=== PATIENT | female | born 1965 | race Caucasian/White ===

== ENCOUNTER → 2016-05-03 | Outpatient (CLI) | payer MEDICAID ==
[~2016-05-03] MED LIST: DOCU100C PO; LIDOCAINE 1% MDV 20ML VIAL As Ordered ONE; MORP15TA2 PO; OYST500T50 PO; PERC10TA17 PO; RANI1TAB6 PO
--- NOTE | 2016-05-03 16:57 | REP ---
ULTRASOUND LEFT AXILLARY REGION: Ultrasound left axillary region is performed at the site of a reported palpable abnormality. Patient has had prior bilateral mastectomy. In the left axillary region is a rounded area of fluid with internal echo's measuring 2.1 x 1.7 x 1.9 cm. We will proceed with ultrasound guided aspiration. Signed by Iftikhar Ibanez MD 05/04/2016 05:10 P
--- NOTE | 2016-05-03 20:52 | REP ---
ULTRASOUND GUIDED LEFT AXILLARY NODULE BIOPSY: The procedure was performed under the direct supervision of Dr. Ibanez. The patient is status post bilateral mastectomy. The patient has a history of a palpable lump in the left axillary region. Preliminary sonography performed earlier today demonstrates a round hypoechoic fluid collection with some internal echoes measuring 2.1 x 1.7 x 1.9 cm. The risks and benefits of the procedure of the procedure were explained to the patient and informed consent was obtained. The left axillary nodule was localized using ultrasound guidance. The skin was prepped and draped in a sterile fashion. 1% lidocaine was used as a local anesthetic. Using ultrasound guidance, an 18-gauge needle was inserted and advanced into the nodule. 3 mL of yellow colored fluid was withdrawn and sent to the lab. The patient tolerated the procedure well and there were no immediate complications. Reviewed by DIANA Kwan 05/04/2016 08:34 AEdited and Signed by Iftikhar Ibanez MD 05/04/2016 05:05 P
== END | disposition home or self-care (01) ==
LOC: M RADPRO 10:17
PROVIDERS: ATTEND Internal Medicine Medical Oncology
DX: R59.0 Localized enlarged lymph nodes (principal); Z88.8 Allergy status to other drugs, medicaments and biological substances; Z79.891 Long term (current) use of opiate analgesic; Z79.818 Long term (current) use of other agents affecting estrogen receptors and estrogen levels; Z79.899 Other long term (current) drug therapy; Z85.3 Personal history of malignant neoplasm of breast

== ENCOUNTER 2016-05-09 11:39 | Outpatient (RCR) | payer MEDICAID | END 2016-05-31 | LOC: M PT 11:39 | PROVIDERS: ATTEND Internal Medicine | DX: Z51.89 Encounter for other specified aftercare (principal); C50.912 Malignant neoplasm of unspecified site of left female breast; C50.911 Malignant neoplasm of unspecified site of right female breast ==

== ENCOUNTER → 2016-05-09 | Outpatient (REF) | payer MEDICAID ==
[~2016-05-09] MED LIST changes: -LIDOCAINE 1% MDV 20ML VIAL As Ordered ONE
== END ==
LOC: M LAB REF 12:10
PROVIDERS: ATTEND Internal Medicine Medical Oncology
DX: C50.919 Malignant neoplasm of unspecified site of unspecified female breast (principal)

== ENCOUNTER → 2016-06-07 | Outpatient (CLI) | payer MEDICAID ==
--- NOTE | 2016-06-07 21:33 | ECHO ---
DATE OF PROCEDURE: 06/07/2016 REFERRING PHYSICIAN: Kim Weir MD INDICATION: Chemotherapy drugs that may affect the heart. HEIGHT: 175 cm WEIGHT: 60 kg MEASUREMENTS: Left atrium: 3.0 cm Aortic root: 3.2 cm Left ventricle diastole: 3.9 cm Ventricular septum: 0.84 cm Posterior wall: 0.84 cm LVOT: 2.1 cm Inferior vena cava: 1.5 cm DOPPLER MEASUREMENTS: Aortic valve velocity: 114 cm/s LVOT velocity: 72.9 cm/s Very mild mitral regurgitation. Mitral E velocity: 82.9 cm/s Mitral A velocity: 38.0 cm/s Mitral deceleration time: 204 ms Very mild tricuspid regurgitation. Estimated right ventricle systolic pressure 18 mmHg assuming a right atrial pressure of 5 mmHg. MITRAL ANNULAR TISSUE DOPPLER: E prime septal: 10.3 cm/s E prime lateral: 13.6 cm/s DESCRIPTION: Rhythm was sinus. No pericardial effusion. Image quality was fair. This is a 2D, M-mode, color flow Doppler and pulse wave Doppler examination that included mitral annular tissue Doppler. CONCLUSIONS: 1. Normal echocardiogram Doppler. 2. Normal left ventricle internal dimensions, wall thickness, wall motion, wall thickening, systolic and diastolic function. Left ventricular ejection fraction (LVEF) 60% by visual estimate.
== END ==
LOC: M CARPUL 10:31
PROVIDERS: ATTEND Internal Medicine Medical Oncology
DX: C50.919 Malignant neoplasm of unspecified site of unspecified female breast (principal)

== ENCOUNTER → 2016-06-17 | Outpatient (CLI) | payer MEDICAID ==
[~2016-06-17] VITALS: Ht 175.3 cm; Wt 59.0 kg
[~2016-06-17] MED LIST changes: +LIDOCAINE 2% INJ 100 MG/5 ML SDV (FOR ANES.) As Ordered ONE; +NS 1,000 ML IV SCH; +PROPOFOL 200 MG/20 ML VIAL As Ordered ONE
--- NOTE | 2016-06-17 14:20 | ROOR ---
Patient Name: Hammad Ruiz Procedure Date: 06/17/2016 1:55 PM Date of : 1965 Age: 50 Room: [facility] Gender: Female Note Status: Finalized Procedure: Colonoscopy Indications: Hematochezia, Change in bowel habits, Constipation Providers: Jackson ARAUZ MD Referring MD: FRANCIS ROBIN MD Requesting Provider: Medicines: Monitored Anesthesia Care Complications: No immediate complications. Procedure: Pre-Anesthesia Assessment: - The heart rate, respiratory rate, oxygen saturations, blood pressure, adequacy of pulmonary ventilation, and response to care were monitored throughout the procedure. The Colonoscope was introduced through the anus and advanced to the cecum, identified by appendiceal orifice and ileocecal valve. The colonoscopy was performed without difficulty. The patient tolerated the procedure well. The quality of the bowel preparation was good. Findings: The perianal and digital rectal examinations were normal. (Exam: Complete, Prep: Good or Excellent.) Internal hemorrhoids were found during retroflexion. The hemorrhoids were medium-sized. A 8 mm polyp was found in the proximal ascending colon. The polyp was carpet-like. The polyp was removed with a cold snare. Resection and retrieval were complete. A few medium-mouthed diverticula were found in the sigmoid colon. The exam was otherwise without abnormality on direct and retroflexion views. Impression: - Internal hemorrhoids. - One 8 mm polyp in the proximal ascending colon, removed with a cold snare. Resected and retrieved. - Mild diverticulosis in the sigmoid colon. - The examination was otherwise normal on direct and retroflexion views. Recommendation: - Telephone endoscopist for pathology results in 2 weeks. - If the pathology report reveals adenomatous tissue, then repeat the colonoscopy for surveillance in 3 years. - If the pathology report indicates hyperplastic polyp, then repeat colonoscopy for screening purposes in 10 years. Jackson Arauz MD Jackson ARAUZ MD 06/17/2016 2:20:00 PM This report has been signed electronically. Number of Addenda: 0 Note Initiated On: 06/17/2016 1:55 PM Estimated Blood Loss: Estimated blood loss: none.
[2016-06-17 14:45] VITALS: BP 108/67
== END | disposition home or self-care (01) ==
LOC: M OPP 12:45
PROVIDERS: ATTEND Internal Medicine Gastroenterology
DX: K64.8 Other hemorrhoids (principal); D12.2 Benign neoplasm of ascending colon; K57.30 Diverticulosis of large intestine without perforation or abscess without bleeding; R12 Heartburn; F17.200 Nicotine dependence, unspecified, uncomplicated; Z79.899 Other long term (current) drug therapy

== ENCOUNTER 2016-06-21 11:54 | Outpatient (RCR) | payer MEDICAID ==
[~2016-06-21 11:54] MED LIST changes: -LIDOCAINE 2% INJ 100 MG/5 ML SDV (FOR ANES.) As Ordered ONE; -NS 1,000 ML IV SCH; -PROPOFOL 200 MG/20 ML VIAL As Ordered ONE
== END 2016-06-28 ==
LOC: M PT 11:54
PROVIDERS: ATTEND Internal Medicine
DX: Z51.89 Encounter for other specified aftercare (principal); C50.912 Malignant neoplasm of unspecified site of left female breast; C50.911 Malignant neoplasm of unspecified site of right female breast

== ENCOUNTER 2016-06-23 15:31 | Outpatient (RCR) | payer MEDICAID ==
--- NOTE | 2016-06-22 10:25 | RADONC ---
RADIATION ONCOLOGY PROGRESS NOTE DATE: 06/20/2016 CHART NUMBER: [id number] Once again, I had a very lengthy discussion with Mrs. Ruiz on the telephone. It is now two months' today since I have seen her in consultation. After a very lengthy discussion, the patient reports that she has now been off smoking cigarettes for 6 days and that her plastic surgeon is scheduling her for surgery sometime around August 05. She does not wish to have radiation until she has had surgery and the surgical wounds have healed. This would put it at the end of July or the beginning of August, which is another 2+ months away. I had a very lengthy discussion in no uncertain terms with this patient. I told her that I am quite concerned that it is now 2 months and nothing has been done. I let her know that she has already risked and compromised the overall local control rate of her disease. As time goes on, the efficacy of radiation becomes more and more questionable. The patient is very focused on reconstructive surgery and still did not want radiation. I made clear to her that cure of her malignancy should be her top priority. After a very lengthy discussion with this patient, trying to get her to consider initiating radiation, or at least to move up her plastic surgery sooner, she said she needs to talk to her and she will get back to us. So once again, in conclusion, we basically ended the call with the fact that she will think about it and get back to us if and when she wants radiation. I did discuss with her the multiple phone call she has had with my nurse Manuel Melissa over the past month or so, which also let her know risks she is taking. I was physically present in the room during several of those phone calls and can confirm that nurse Melissa explained to her the risks of delaying radiation much further. Once again in summary, we will honor the patient's wishes and she will contact us if she wants radiation and when. I let it be clear that I do not know if there is absolutely any benefit to radiation after 6 months post treatment. She will be talking to her and get back to us if she wishes.
--- NOTE | 2016-06-24 09:45 | RADONC ---
RADIATION ONCOLOGY SIMULATION NOTE DATE: 06/23/2016 CHART NUMBER: [id number] Ms. Ruiz was taken to the CT scan for CT simulation of her left breast and supraclavicular rosenberg. CT was accomplished without difficulty or discomfort. Radiation treatment planning is underway and radiation treatments will begin subsequently. An immobilization device was created without difficulty or discomfort and will be used throughout the course of treatment. I was physically present throughout the course of CT simulation.
== END 2016-06-28 ==
LOC: M ONCR 15:31
PROVIDERS: ATTEND Radiology Radiation Oncology
DX: C50.919 Malignant neoplasm of unspecified site of unspecified female breast (principal)

== ENCOUNTER → 2016-06-23 | Outpatient (CLI) | payer MEDICAID | LOC: M RAD 13:37 | PROVIDERS: ATTEND Radiology Radiation Oncology | DX: C50.312 Malignant neoplasm of lower-inner quadrant of left female breast (principal); C50.811 Malignant neoplasm of overlapping sites of right female breast ==

== ENCOUNTER 2016-06-29 11:18 | Outpatient (RCR) | payer MEDICAID ==
--- NOTE | 2016-07-05 09:54 | RADONC ---
RADIATION ONCOLOGY PROGRESS NOTE DATE: 07/04/2016 CHART NUMBER: [id number]. Ms. Ruiz presented today for her first fraction of radiation to her left breast, axilla and supraclavicular areas. We did our best at this point to attempt and set this woman up. She said she was in too much pain and unable to keep her arm in the position she was in during CT simulation and treatment planning. She is also unable to lie in the same position with her shoulder and back. After an extended period time attempting to recreate our treatment planning position, we have given up at this point. The patient reports that she thinks this is due to physical therapy which has caused her increased pain and the fact that she has not taken her pain medication. I have asked her to allow for some time for relaxing of her arm and to take a pain pill prior to coming in next time. We will reattempt this on . If the patient cannot do it, we may try one more attempt, and otherwise, we will see if we can undergo a new CT for CT treatment planning and redo the entire plan. We are utilizing a monoisocentric breast technique. We cannot allow movement or there will be an overlap between the four rosenberg possibly leading to radio osteonecrosis, skin breakdown and other problems. This is especially a concern in a patient that is planning on undergoing cosmetic surgery following radiation. It would be quite risky to obtain a possible hot spot in a future surgical field. Once again, in summary, the patient could not reproduce the treatment position and therefore we will reattempt this later in the week and perhaps again next, prior to re-CT simulating her.
--- NOTE | 2016-07-14 09:14 | RADONC ---
RADIATION ONCOLOGY SIMULATION NOTE DATE: 07/14/2016 Ms. Ruiz unfortunately, was unable to maintain her position for the four-field breast treatment. Multiple attempts had been made on the linear accelerator and we could not reproduce the field. She says she is too uncomfortable and has to keep her arm basically straight up in the air. She cannot get them over her head. We therefore have taken her back to CT scan for re-simulation and positioning. We now have the patient somewhat at an angle with her arm straight up. She seems comfortable in this position. Clearly we will be unable to treat the supraclavicular area or the posterior axillary boost field in this position. We can however treat the tangential rosenberg and will try and include the lower axillary region where her sentinel lymph node was positive. She did have further axillary dissection and none of the other lymph nodes were positive. Once again, radiation treatment planning is underway and we will attempt to include the chest wall as well as the first echelon of lymph nodes in the lower axillary area with a sentinel lymph node was positive. An immobilization device as noted above was created and appears to be comfortable at this time. It will be utilized throughout the course of treatment. I was physically present throughout the course of CT simulation. I am unsure whether or not she will be able to maintain this position, but we will attempt to treat her once again. LUIS
--- NOTE | 2016-07-17 07:21 | RADONC ---
RADIATION ONCOLOGY SIMULATION NOTE DATE: 07/15/2016 CHART NUMBER: [id number] Ms. Ruiz was brought back to the CT scan for re-CT simulation once again of her chest wall field. CT this time was accomplished with less discomfort. Following her last one just the other day, the patient moved and said she was not able to hold her position. Therefore, we are re-attempting to do it again, now in a more comfortable position. I made quite clear to the patient at this point she is now almost 5 months post surgery. It is time now either to treat her or to give up on this treatment. I made clear that the treatments last only 10 minutes and if at this point she is still unable to lie in any type of position that can be treated, then that is all that can be done. An immobilization device was created once again, with no discomfort. It will be used throughout the course of treatment. I was physically present once again at this CT simulation. We will attempt to treat her in this new position if she is cooperative. If not, we will refer her back to her medical oncologist.
== END 2016-07-29 ==
LOC: M ONCR 11:18
PROVIDERS: ATTEND Radiology Radiation Oncology
DX: C50.312 Malignant neoplasm of lower-inner quadrant of left female breast (principal); C50.811 Malignant neoplasm of overlapping sites of right female breast

== ENCOUNTER → 2016-07-14 | Outpatient (CLI) | payer MEDICAID | LOC: M RAD 08:16 | PROVIDERS: ATTEND Radiology Radiation Oncology | DX: C50.912 Malignant neoplasm of unspecified site of left female breast (principal) ==

== ENCOUNTER → 2016-07-15 | Outpatient (CLI) | payer MEDICAID | LOC: M RAD 13:58 | PROVIDERS: ATTEND Radiology Radiation Oncology | DX: C50.312 Malignant neoplasm of lower-inner quadrant of left female breast (principal); C50.811 Malignant neoplasm of overlapping sites of right female breast ==

== ENCOUNTER → 2016-07-18 | Outpatient (CLI) | payer MEDICAID ==
--- NOTE | 2016-07-19 08:46 | REP ---
HISTORY: Breast carcinoma. Contrast ProHance 13 mL. A disc bulge is present at the C4-5 level. There is minimal effacement of the thecal sac without spinal cord compression. Facet hypertrophy is present on the left. This produces minimal narrowing of the left C4 neural foramen. The right C4 neural foramen is patent. A disc bulge is present at the C5-6 level. There is minimal effacement of the thecal sac without spinal cord compression. Facet hypertrophy is present on the left. This produces minimal narrowing of the left C5 neural foramen. The right C5 neural foramen is patent. A disc bulge is present at the C6-7 level. There is minimal effacement of the thecal sac without spinal cord compression. The C6 neural foramina are patent. There is no other disc bulge or herniation. The remaining neural foramina are patent. The spinal cord is normal in signal intensity. There is no abnormal enhancement. Normal signal intensity is present in the cervical vertebral bodies. IMPRESSION: There is cervical spondylosis at the C4-5 through C6-7 levels without spinal cord compression. Signed by Cedrick Gore MD 07/19/2016 09:39 A
--- NOTE | 2016-07-19 09:25 | REP ---
MRI NECK WITHOUT AND WITH CONTRAST: HISTORY: Breast carcinoma. Contrast: ProHance 13 mL The examination is very limited as the right side of the naso- and oropharynx and neck are obscured by metal artifact. The visualized naso-, shoshana- and hypopharynx, larynx and subglottic trachea are normal in appearance. The left parotid and submandibular glands and thyroid gland are normal in signal intensity. There is no adenopathy. There is no left supraclavicular mass. Disc bulges are present at the C4-5 through C6-7 levels. There is minimal effacement of the thecal sac without spinal cord compression. The lung apices are clear. IMPRESSION: Very limited examination demonstrating no definite abnormality. Signed by Cedrick Gore MD 07/19/2016 09:36 A
--- NOTE | 2016-07-19 09:33 | REP ---
MRI LEFT SHOULDER WITH AND WITHOUT CONTRAST: TECHNIQUE: Axial T2 fat sat, gradient echo, sagittal oblique T2 fat sat, coronal oblique T1, T2 fat sat. Pre and post IV contrast T1 fat sat imaging in all three planes, with the intravenous administration of 13 mL of gadolinium. There are mild hypertrophic degenerative changes of the acromioclavicular joint with edema in the distal clavicle. The acromion is not hooked in shape. The supraspinatus tendon demonstrates ill-defined increased signal compatible with tendinopathy/tendinitis. No definite rotator cuff tear is seen. The biceps tendon si within the bicipital groove and no tenosynovitis. There is no Hill-Sachs deformity. Deltoid muscle demonstrates no abnormal signal. The biceps labral complex appears intact. There does appear to be fraying of the biceps labral complex and superior labrum. Nonenhancing benign appearing cyst is seen in the proximal humerus measuring 2.8 x 1.8 x 1.9 cm. No other abnormal marrow signal is seen. There is no abnormal bone marrow or soft tissue enhancement. There is no soft tissue mass. There is a tiny amount of fluid in the subacromial subdeltoid bursae which may indicate an element of bursitis. IMPRESSION: Mild hypertrophic degenerative changes of the acromioclavicular joint with subchondral marrow edema in the distal clavicle. Supraspinatus tendinopathy/tendinitis without rotator cuff tear. There is diffuse fraying of the biceps labral complex and superior labrum. There is a benign cyst in the proximal humerus. Mild fluid in the subacromial subdeltoid bursae may indicate an element of bursitis. Signed by Iftikhar Ibanez MD 07/19/2016 03:29 P
== END ==
LOC: M RAD 08:18
PROVIDERS: ATTEND Internal Medicine Medical Oncology
DX: M25.512 Pain in left shoulder (principal); M54.2 Cervicalgia; C50.919 Malignant neoplasm of unspecified site of unspecified female breast; C79.31 Secondary malignant neoplasm of brain

== ENCOUNTER 2016-07-28 11:42 | Outpatient (RCR) | payer MEDICAID | END 2016-07-29 | LOC: M PT 11:42 | PROVIDERS: ATTEND Internal Medicine | DX: Z51.89 Encounter for other specified aftercare (principal); C50.912 Malignant neoplasm of unspecified site of left female breast; C50.911 Malignant neoplasm of unspecified site of right female breast ==

== ENCOUNTER 2016-08-01 08:10 | Outpatient (RCR) | payer MEDICAID ==
--- NOTE | 2016-08-02 08:27 | RADONC ---
RADIATION ONCOLOGY PROGRESS NOTE DATE: 08/01/2016 CHART NUMBER: [id number]. PROGRESS NOTE: Ms. Ruiz is thus far at a dose of 540 cGy to her left chest wall and was last treated on 07/29/2016. The patient had been tolerating her treatments well with no difficulties related to her radiation therapy. She was not treated today secondary to machine breakdown. Radiation therapy is scheduled to resume tomorrow.
--- NOTE | 2016-08-16 08:03 | RADONC ---
RADIATION ONCOLOGY PROGRESS NOTE DATE: 08/15/2016 CHART NUMBER: [id number]. PROGRESS NOTE: Ms. Ruiz is thus far at a dose of 1800 cGy to her left chest wall and was last treated on 08/12/2016. The patient did not come in today reporting that she thought today was Monday. She is scheduled to come in tomorrow for routine treatment. As of Monday, she had been doing quite well with radiation. We will see her tomorrow and radiation should be reinitiated.
--- NOTE | 2016-08-23 07:40 | RADONC ---
RADIATION ONCOLOGY PROGRESS NOTE DATE: 08/22/2016 CHART NUMBER: [id number] Ms. Ruiz is thus far at a dose of 2160 cGy and was last treated on 08/17/2016. The patient did not come in today for treatment. Apparently, she called and left a message for our therapist saying she had no intention of coming in and if they wanted to know why they should call her. Clearly, she has missed several treatments at this point. She was last treated on 08/17/2016 and therefore missed , Monday and today. She had also contacted us on another occasion saying she thought it was Monday and did not come for that reason. We have the patient scheduled to resume radiation at her regular time slot tomorrow. I am not clear as to why this patient is missing her treatments. When last treated, she was having no difficulty with radiation with regards to pain or discomfort from the radiation. Of course, she did have her longstanding issues of pain which were unchanged. Once again, we will reevaluate the patient when she returns to us. I will have a discussion at that time as to the need for continuous daily radiation treatments or they will lose their efficacy.
[2016-09-29] MEDS ORDERED: SILV-4 TOP (13:00)
== END 2016-08-28 ==
LOC: M ONCR 08:10
PROVIDERS: ATTEND Radiology Radiation Oncology
DX: C50.312 Malignant neoplasm of lower-inner quadrant of left female breast (principal); C50.811 Malignant neoplasm of overlapping sites of right female breast

== ENCOUNTER → 2016-08-05 | Outpatient (CLI) | payer MEDICAID ==
--- NOTE | 2016-08-05 12:03 | REP ---
Left upper extremity duplex Doppler venous ultrasound. Real time compression and duplex Doppler evaluation of the left upper extremity deep venous system is performed. The left subclavian, jugular, axillary, brachial, basilic and cephalic veins are fully compressible where accessible with transducer pressure, and demonstrate no intraluminal thrombus and normal venous waveforms. There is no evidence of deep venous thrombosis. Impression: No evidence of deep venous thrombosis of the left upper extremity deep vein system. Signed by Iftikhar Ibanez MD 08/05/2016 11:54 A
== END ==
LOC: M RAD 10:31
PROVIDERS: ATTEND Internal Medicine Medical Oncology
DX: M79.602 Pain in left arm (principal); M79.89 Other specified soft tissue disorders

== ENCOUNTER 2016-08-25 08:30 | Outpatient (RCR) | payer MEDICAID ==
--- NOTE | 2016-08-09 08:01 | RADONC ---
RADIATION ONCOLOGY PROGRESS NOTE: DATE OF SERVICE: 08/08/2016 CHART NO: [id number] Ms. Ruiz was last treated on Monday08/05/2016 and is thus far at a dose of 1260 cGy to her left breast. She was not treated today secondary to machine breakdown. We had contacted her and let her known that the machine broke down so I was somewhat surprised to see her come in today nonetheless. I am still not quite sure why she came in. The patient came in and she continued to complain of pain in the shoulder and neck and arm. She has however being followed by Dr. Villa and receiving morphine, Percocet and other pain medications including Zanaflex. In addition, the patient made some usual requests. She wanted to have a copy of the official overall treatment plan and objectives from Tumor Board. I did not quite understand what she was asking for. I let her know that she is not scheduled for discussion at tumor board which is due in 2 days. Apparently, I did put her on for tumor board several months ago. Her case would have been discussed in early May. I let the patient know that this is an informal process with prospective discussion and no formal overall treatment plan is written and utilized. It is more of a working discussion conference. The patient then went on to tell our nursing staff that she wishes to have all of our treatment plans on the patient portal. She wants her overall treatment plan on the portal. I am not quite understanding this either. She has been given a list of all her dates and treatment times as well as what we will be treating. She is scheduled going out for the next several weeks. I have tried to explain her that our record and verify system as well as treatment planning system is not part of the [facility] electronic medical record and is not part of the patient's portal. The technical specifications of treatment planning cannot be accommodated by a non-oncologic electronic medical record. I am not quite sure what she has been asking for. We did ask her to continue to follow with her pain doctor for management of that issue. She has of course, been given the schedule of her treatments. She is aware that I can no longer treat the axilla since she cannot lay her arm down. She is aware that we have made multiple attempts to try and position her so that we could do isocentric breast treatment to include the supraclavicular and axillary lymph nodes but that she could not lay still without her arm being in the vertical position. We, therefore, are largely treating the chest wall and just the lower axillary area at this point because technically it is not possible to treat any other way. The machine is being repaired today and should be up tomorrow. Ms. Ruiz should be able to resume therapy tomorrow without issue. I hope to be accommodating to her if there is anything I can get her, as far as information goes, or for any purpose, I would be glad to do it. If she wishes to have her name placed for discussion at our next multidisciplinary tumor conference, I would be glad to do that as well. LUIS
== END 2016-08-28 ==
LOC: M PT 08:30
PROVIDERS: ATTEND Internal Medicine
DX: C50.912 Malignant neoplasm of unspecified site of left female breast (principal); C50.911 Malignant neoplasm of unspecified site of right female breast

== ENCOUNTER 2016-08-29 10:32 | Outpatient (RCR) | payer MEDICAID ==
--- NOTE | 2016-08-30 11:20 | RADONC ---
RADIATION ONCOLOGY PROGRESS NOTE DATE: 08/29/2016 CHART NUMBER: Ms. Ruiz is presently at a dose of 3060 cGy to her left chest wall and is tolerating her radiation treatments without difficulty. The patient has numerous complaints saying she is having uncontrolled pain. These complaints, however predate radiation and are not related to our treatment. She also is complaining of some depression and difficulty sleeping as well as a multitude of other complaints. REVIEW OF SYSTEMS: The patient's review of systems is positive for the above, but is otherwise noncontributory. She denies nausea, vomiting, fevers, chills, night sweats, diplopia, chest pain, other than her arm and shoulder and chest wall pain. PHYSICAL EXAMINATION: The patient's skin is in good condition with no evidence of moist or dry desquamation. The remainder of her physical exam remains unchanged. Unfortunately, Ms. Ruiz is presenting with multiple complaints, which at this time are not related to her radiation treatments. I am unsure as to the cause of all this difficulty. I will defer to her primary care and other physicians with regards to treatment of these problems. In the meantime, however, radiation to the chest wall will continue as scheduled. Unfortunately, the patient's inability to move her arm has restricted our ability for treating the axillary area. We are therefore stuck with the ability to only treat the chest wall itself. Although limiting, hopefully we will be of some benefit to this very pleasant and unfortunate woman. Once again, radiation will continue as scheduled. I hope we will be of some benefit to her under the present circumstances.
--- NOTE | 2016-09-06 07:16 | RADONC ---
RADIATION ONCOLOGY PROGRESS NOTE DATE: 09/05/2016 CHART NUMBER: [id number]. PROGRESS NOTE: Ms. Willett is presently at a dose of 3780 cGy to her left chest wall and is tolerating her treatments quite well with no significant difficulties related to her radiation therapy. She continues to complain of a significant amount of discomfort in the shoulder and arm region. REVIEW OF SYSTEMS: The patient's review of systems is positive for continued pain, which is present before radiation and is not related to her radiation treatments. Her review of systems is otherwise noncontributory. Denies nausea, vomiting, fevers, chills, night sweats, diplopia, headaches, anxiety or depression, anorexia, weight loss, visual disturbances, chest pain, urinary or bowel difficulties, bone pain, or neurological problems. PHYSICAL EXAMINATION: The patient's skin overall is in good condition with no evidence of evidence of moist or dry desquamation. The remainder of physical exam remains unchanged. Ms. Ruiz is tolerating her treatments quite well. Radiation will continue as scheduled.
--- NOTE | 2016-09-09 14:57 | RADONC ---
RADIATION ONCOLOGY SIMULATION NOTE DATE: 09/09/2016 CHART NUMBER: [id number] Ms. Ruiz was taken to the linear accelerator today for clinical setup of her electron beam boost field. Setup was accomplished without difficulty or discomfort. Radiation treatment planning is underway and radiation treatments will begin subsequently. An immobilization device will be used throughout the course of treatment. I was physically present throughout the course of electron setup simulation.
--- NOTE | 2016-09-13 08:51 | RADONC ---
RADIATION ONCOLOGY PROGRESS NOTE DATE: 09/12/2016 CHART NUMBER: [id number] PROGRESS NOTE: Ms. Ruiz is presently at a dose of 4680 cGy to her left chest wall and is tolerating treatments quite well at this point with no significant difficulties related to her radiation therapy. The patient continues to have severe pain, which is being managed at this time by Dr. Weir. She reports that her pain, however is worsening. I have discussed with the patient just briefly to see whether or not she would like us to refer her to a pain clinic, perhaps in [place]. At this time, however the patient did not seem to want to pursue this further. REVIEW OF SYSTEMS: The patient's review of systems is otherwise noncontributory. Denies nausea, vomiting, fevers, chills, night sweats, diplopia, headaches, anxiety or depression, anorexia, weight loss, visual disturbances, chest pain, urinary or bowel difficulties, bone pain, or neurological problems. PHYSICAL EXAMINATION: The patient's skin shows some erythema and tanning present, but overall is in generally good condition with no evidence of moist or dry desquamation. The remainder of physical exam remains unchanged. Ms. Ruiz is tolerating her treatments fairly well, although she continues to have a marked amount of pain, which is unrelated to radiation but has been going on since surgery. This is being managed by Dr. Weir and I will defer to her expertise. In the meantime, radiation will continue as scheduled. LUIS
--- NOTE | 2016-09-20 06:59 | RADONC ---
RADIATION ONCOLOGY PROGRESS NOTE DATE: 09/19/2016 CHART NUMBER: [id number] Ms. Ruiz is presently at a dose of 5400 cGy to her left chest wall scar boost and is tolerating her treatments quite well with no complaints at this time related to her radiation therapy. Unfortunately, the patient continues to have severe pain, which she describes as a 9 out of 10. She is being followed closely by Dr. Villa at the pain clinic and is doing some type of pressure point therapy. She reports that it did alleviate some of her pain the day of the treatment, but the pain has of course resumed. REVIEW OF SYSTEMS: The patient's review of systems is positive for her pain as well as some depression and fatigue, it is otherwise not remarkable. She denies nausea, vomiting, fevers, chills, night sweats, diplopia, headaches, anxiety or depression, anorexia, weight loss, visual disturbances, chest pain, urinary or bowel difficulties, bone pain, or neurological problems. PHYSICAL EXAMINATION: On physical exam, the patient's skin is in generally good condition with no evidence of moist or dry desquamation. ASSESSMENT: Unfortunately, the patient continues to have this significant amount of pain. She is scheduled to complete therapy on , in just three days, and perhaps this will alleviate some of her issues. I tried to encourage her that by completing therapy she will not have to sit in this uncomfortable position everyday and perhaps that will help take some of the aggravating factors away from her pain at this time. I have encouraged her to keep following through with Dr. Villa and the various pain techniques utilized by the pain experts. Of course, her pain is outside my scope of practice, but I let the patient know that we are here for her if there is anything we can do or if she wants to be referred for other opinions as well. I wish we could be of more benefit to this pleasant but unfortunate person. LUIS
--- NOTE | 2016-09-23 07:51 | RADONC ---
RADIATION ONCOLOGY TREATMENT SUMMARY: DATE OF SERVICE: 09/22/2016 CHART NO: [id number] DIAGNOSIS: Left breast cancer. STAGE: II A, T1N1M0 ECOG PERFORMANCE STATUS: 1 Ms. 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 We treated the patient to her left chest wall for a total dose of 5040 cGy delivered in 28 fractions of 180 cGy each over 51 elapsed days from 07/27/2016 through 09/15/2016. The patient's left chest wall and lower axillary lymph nodes were treated on a linear accelerator utilizing a combination of 6X and 18 X photons utilizing 3D conformal technique via medial and lateral tangential rosenberg. Following completion of 5040 cGy of the entire left chest wall and lower axillary region. The scar was boosted for an additional 900 cGy delivered in five fractions of 180 cGy each from 09/16/2016 through 09/22/2016. The scar boost was treated on the linear accelerator utilizing a 9 MEV electron beam prescribed to the 90% isodose line via en face technique. This brought the scar primary site region to a total dose of 5940 cGy delivered in 33 fractions over 58 elapsed days from 07/27/2016 through 09/22/2016. Due to the patient's discomfort and inability to lay with in the normal confines of the treatment planned position, we were unable to utilize a monocentric technique treating the supraclavicular and mid axillary areas. In order to compensate for that, we contoured the lower axillary region and contoured our tangential rosenberg to include that lower region. I believe we were able to include those areas while not causing extreme discomfort to this unfortunate woman throughout the course of her treatments. Unfortunately, Ms. Ruiz did continue to complain of pain, which was being seen and managed by Dr. Villa at the pain center. She has been on multiple medications as well as undergoing pressure point treatments and other techniques. I will of course defer these treatments to the expertise of the pain specialist. Ms. Ruiz, however, was able to complete radiation as prescribed and actually did quite well with the treatments themselves. I have scheduled the patient to see me again in 1 month for further followup. She will also continue to be followed by her other physicians as well. I have let the patient know she can contact me in the meantime if I could be of any further assistance. cc: Kim Weir MD *MD LUIS Jack
[2016-09-29] MEDS ORDERED: SILV-4 TOP (13:00)
== END 2016-09-28 ==
LOC: M ONCR 10:32
PROVIDERS: ATTEND Radiology Radiation Oncology
DX: C50.312 Malignant neoplasm of lower-inner quadrant of left female breast (principal); C50.811 Malignant neoplasm of overlapping sites of right female breast

== ENCOUNTER → 2016-08-29 | Outpatient (CLI) | payer MEDICAID ==
--- NOTE | 2016-08-29 23:50 | ECHO ---
DATE OF PROCEDURE: 08/29/2016 REFERRING PHYSICIAN: Dr. Kim Weir INDICATION: Chemotherapy drugs that may affect the heart. HEIGHT: 69 inches. WEIGHT: 124 pounds. MEASUREMENTS: Aortic root: 3.1 cm Left atrium: 2.9 cm Ventricular septum: 0.84 cm Posterior wall: 0.82 cm Left ventricle diastole: 3.9 cm Aortic annulus: 2.0 cm Inferior vena cava: 2.1 cm DOPPLER MEASUREMENTS: Aortic valve velocity: 108 cm/s LVOT velocity: 79.0 cm/s LVOT VTI: 15.7 cm Mitral E velocity: 78.0 cm/s Mitral A velocity: 54.3 cm/s Mitral deceleration time: 215 ms Trace tricuspid regurgitation Pulmonary artery systolic pressure: 21 mmHg by pulmonary acceleration time MITRAL ANNULAR TISSUE DOPPLER: E-prime septal: 9.9 cm/s E-prime lateral: 13.6 cm/s DESCRIPTION: Rhythm was sinus. This is a moderately technically difficult echocardiogram. No pericardial effusion. This was a 2D, M-mode, color flow Doppler and pulse wave Doppler examination and included mitral annular tissue Doppler. CONCLUSIONS: 1. Normal left ventricle end-diastolic dimension. Normal LV wall thickness. Moderate global LV hypokinesis with severe reduction overall LV systolic function. Left ventricular ejection fraction (LVEF) 30% by visual estimate. 2. Normal LV diastolic function. 3. Moderately technically difficult echocardiogram. ADDITIONAL COMMENTS AND RECOMMENDATIONS: Suggest obtaining a MUGA equilibrium radionuclide angiography (FRANKY) to more objectively define LVEF.
== END ==
LOC: M CARPUL 10:36
PROVIDERS: ATTEND Internal Medicine Medical Oncology
DX: C50.919 Malignant neoplasm of unspecified site of unspecified female breast (principal)

== ENCOUNTER → 2016-09-16 | Outpatient (CLI) | payer MEDICAID, OTHER ==
[~2016-09-16] MED LIST changes: +ISOVUE-300 61% 50ML VIAL (Q9967) As Ordered ONE; +SILV-4 TOP
--- NOTE | 2016-09-16 11:59 | REPKIM ---
CLINICAL HISTORY: Patient has a left IJ chest [id number]. Patient presents for suspected port malfunction. PROCEDURE PERFORMED: Contrast injection via the pre-existing chest port INTERVENTIONALIST: Skip Todd MD CONSENT: The risks, benefits and alternatives to the procedure were explained to the patient and informed written consent was obtained. CONTRAST: 6 mL Isovue 300 SEDATIOIN: None EBL: None PROCEDURE/FINDINGS: The patient was brought to the interventional radiology and was positioned supine on the table. Time out procedure was performed. The left chest was prepped and draped in the usual sterile fashion. Initial fluoroscopy showed the pre-existing left chest [id number] with its tip at the cavoatrial junction. The fluoroscopy showed the catheter in a satisfactory course with no evidence of kink. The port was accessed using a 22-gauge Shafer needle in standard fashion. Contrast was injected and DSA images were obtained. This showed the port is patent with no evidence of extravasation of contrast. The superior vena cava is patent. The port was then flushed with saline. Heparin (100 units/ml), was locked in the port. The Shafer needle was removed. The patient tolerated the procedure well with no immediate complications. This procedure was performed using fluoroscopy. Dr. Todd was present. IMPRESSION: The pre-existing left chest [id number]-C-[id number] catheter is patent in a satisfactory course with its tip at the cavoatrial junction. The port aspirates and flushes freely with no evidence of extravasation. The chest port is ready for use. cc: Kim Weir MD [facility]
== END | disposition home or self-care (01) ==
LOC: M IRPRO 08:55
PROVIDERS: ATTEND Internal Medicine Medical Oncology
DX: Z45.2 Encounter for adjustment and management of vascular access device (principal); C50.919 Malignant neoplasm of unspecified site of unspecified female breast

== ENCOUNTER → 2016-09-20 | Outpatient (CLI) | payer OTHER ==
[~2016-09-20] MED LIST changes: -ISOVUE-300 61% 50ML VIAL (Q9967) As Ordered ONE; -SILV-4 TOP
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
== END ==
LOC: M RAD 14:50
PROVIDERS: ATTEND Psychiatry & Neurology Neurology
DX: S00.85XA Superficial foreign body of other part of head, initial encounter (principal); X58.XXXA Exposure to other specified factors, initial encounter; Y92.89 Other specified places as the place of occurrence of the external cause; Y93.89 Activity, other specified; Y99.8 Other external cause status

== ENCOUNTER → 2016-10-28 | Outpatient (CLI) | payer OTHER ==
[~2016-10-28] MED LIST changes: -DOCU100C PO; +DOCU100C16 PO; -PERC10TA17 PO; +PERC10TA26 PO; +SILV-4 TOP
--- NOTE | 2016-10-29 14:28 | ECHO ---
DATE OF STUDY: 10/28/2016 REFERRING PHYSICIAN: Dr. Kim Weir INDICATION: Chemotherapy drugs that may affect the heart. HEIGHT: 176 cm. WEIGHT: 56.7 kilograms. 2D MEASUREMENTS: Left atrium: 3.3 cm Aortic root: 2.8 cm Ventricular septum: 0.5 cm Posterior wall: 0.69 cm Left ventricle diastole: 4.2 cm Aortic annulus: 1.8 cm Inferior vena cava: 2.5 cm DOPPLER MEASUREMENTS: Aortic valve velocity: 117 cm/s LVOT velocity: 76.7 cm/s LVOT VTI: 18.9 cm Mild mitral regurgitation. Mitral E velocity: 117 cm/s Mitral A velocity: 44.9 cm/s Mitral deceleration time 123 milliseconds Very mild tricuspid regurgitation. Estimated right ventricle systolic pressure: 27 mmHg assuming a right atrial pressure of 5 mmHg Pulmonary artery systolic pressure: 14 mmHg (pulmonary acceleration time method) MITRAL ANNULAR TISSUE DOPPLER: E prime septal: 12.2 cm/s E prime lateral: 13.5 cm/s DESCRIPTION: Rhythm was sinus. Image quality was good. This was a 2D, M-mode, color flow Doppler, and pulse wave Doppler examination and included mitral annular tissue Doppler. CONCLUSIONS: 1. Normal echocardiogram Doppler. 2. Normal left ventricle (LV) internal dimensions and wall thickening. Normal LV regional wall motion and wall thickening. Normal LV systolic and diastolic functioning. Left ventricular ejection fraction (LVEF) 60% by visual estimate.
== END ==
LOC: M CARPUL 16:09
PROVIDERS: ATTEND Internal Medicine Medical Oncology
DX: Z85.3 Personal history of malignant neoplasm of breast (principal); Z79.899 Other long term (current) drug therapy

== ENCOUNTER → 2016-12-12 | Outpatient (CLI) | payer OTHER | LOC: M LAB 09:39 | PROVIDERS: ATTEND Psychiatry & Neurology Neurology | DX: E11.9 Type 2 diabetes mellitus without complications (principal); R20.2 Paresthesia of skin ==

== ENCOUNTER → 2016-12-12 | Outpatient (CLI) | payer OTHER ==
--- NOTE | 2016-12-12 20:53 | ECHO ---
DATE OF PROCEDURE: 12/12/2016 REFERRING PHYSICIAN: Dr. Kim Weir INDICATION: Chemotherapy. HEIGHT: 175 cm WEIGHT: 57 kg DIMENSIONS: IVS: 0.9 LV: 3.8 LVPW: 1.0 LA: 3.3 Aorta: 2.8 FINDINGS: The study is of good technical quality. Left ventricle is of normal size and systolic function with estimated left ventricular ejection fraction (LVEF) 60-65%. Right ventricle is also normal size and systolic function. Both atria appear normal. All four cardiac valves were reasonably well seen and appear normal. No pericardial effusion is noted. Inferior vena cava is upper limits of normal size, but collapses with respiration indicative of likely normal central venous pressure. Aortic root, aortic arch and visualized segment of abdominal aorta appear normal. Doppler interrogation reveals no aortic stenosis or insufficiency. There is mild mitral insufficiency and trace tricuspid and pulmonic insufficiency. Calculated pulmonary artery pressure is within normal limits. Mitral inflow pattern and tissue Doppler imaging of mitral annulus reveal normal diastolic function (E prime velocities of septal and lateral mitral annulus are 10 and 15.7 cm/s respectively). CONCLUSION 1. Study is of good technical quality. 2. Normal left ventricle (LV) size, systolic and diastolic function. 3. No significant valvular disease. 4. Normal or mildly elevated central venous pressure, but likely normal pulmonary artery pressure. COMMENT: Subacute bacterial endocarditis (SBE) prophylaxis is not recommended. MTDD
== END ==
LOC: M CARPUL 08:30
PROVIDERS: ATTEND Internal Medicine Medical Oncology
DX: C50.919 Malignant neoplasm of unspecified site of unspecified female breast (principal)

== ENCOUNTER 2017-03-28 13:17 | Outpatient (RCR) | payer OTHER | END 2017-03-30 | LOC: M PT 13:17 | PROVIDERS: ATTEND Orthopaedic Surgery | DX: Z51.89 Encounter for other specified aftercare (principal); M75.01 Adhesive capsulitis of right shoulder; M75.02 Adhesive capsulitis of left shoulder ==

== ENCOUNTER → 2017-05-11 | Outpatient (CLI) | payer OTHER ==
[2017-05-11 14:30] LABS: HEMATOCRIT 36.1 % (36.0-47.0); HEMOGLOBIN 12.3 g/dl (12.0-16.0); MEAN CORPUSCULAR HEMOGLOBIN 30.1 pg (27.0-33.0); MEAN CORPUSCULAR HGB CONC 34.1 g/dl (32.0-36.5); MEAN CORPUSCULAR VOLUME 88.5 fl (80.0-96.0); PLATELET COUNT, AUTOMATED 135 10^3/uL (150-450); RED BLOOD COUNT 4.08 10^6/uL (4.00-5.40); RED CELL DISTRIBUTION WIDTH 12.6 % (11.5-14.5); WHITE BLOOD COUNT 5.4 10^3/uL (4.0-10.0)
[2017-05-11 14:34] LABS: APPEARANCE, URINE CLEAR (CLEAR); BACTERIA, URINE AUTO NEGATIVE (NEGATIVE); BILIRUBIN, URINE AUTO NEGATIVE (NEGATIVE); BLOOD, URINE BLOOD NEGATIVE (NEGATIVE); COLOR, URINE YELLOW (YELLOW); GLUCOSE, URINE (UA) AUTO NEGATIVE (NEGATIVE); KETONE, URINE AUTO NEGATIVE (NEGATIVE); LEUKOCYTE ESTERASE, URINE AUTO NEGATIVE (NEGATIVE); NITRITE, URINE AUTO NEGATIVE (NEGATIVE); PROTEIN, URINE AUTO NEGATIVE (NEGATIVE); RBC, URINE AUTO 2 /HPF (0-3); SPECIFIC GRAVITY URINE AUTO 1.014 (1.002-1.035); SQUAMOUS EPITHELIAL CELL UR AU 2 /HPF (0-6); UROBILINOGEN, URINE AUTO 0.2 mg/dL (0.0-2.0); WBC, URINE AUTO 1 /HPF (0-3)
[2017-05-11 15:14] LABS: ALBUMIN 3.4 GM/DL (3.2-5.2); ALBUMIN/GLOBULIN RATIO 0.92 (1.00-1.93); ALKALINE PHOSPHATASE 44 U/L (45-117); ALT/SGPT 39 U/L (12-78); ANION GAP 5 MEQ/L (8-16); AST/SGOT 25 U/L (7-37); BILIRUBIN,TOTAL 0.3 MG/DL (0.2-1.0); BLOOD UREA NITROGEN 14 MG/DL (7-18); CALCIUM LEVEL 8.7 MG/DL (8.5-10.1); CARBON DIOXIDE LEVEL 33 MEQ/L (21-32); CHLORIDE LEVEL 101 MEQ/L (98-107); CREATININE FOR GFR 0.51 MG/DL (0.55-1.02); GLOMERULAR FILTRATION RATE > 60.0 (>51); GLUCOSE, FASTING 83 MG/DL (70-105); POTASSIUM SERUM 3.9 MEQ/L (3.5-5.1); SODIUM LEVEL 139 MEQ/L (136-145); TOTAL PROTEIN 7.1 GM/DL (6.4-8.2)
== END ==
LOC: M LAB 13:46
DX: Z01.812 Encounter for preprocedural laboratory examination (principal); M75.02 Adhesive capsulitis of left shoulder
CPT/HCPCS: 80053

== ENCOUNTER → 2017-05-11 | Outpatient (CLI) | payer OTHER ==
[~2017-05-11] MED LIST changes: -DOCU100C16 PO; +LIDOCAINE 2% MDV 20 ML VIAL As Ordered; -MORP15TA2 PO; -OYST500T50 PO; -PERC10TA26 PO; -RANI1TAB6 PO; -SILV-4 TOP
== END | disposition home or self-care (01) ==
LOC: M IRPRO 14:10
DX: C50.919 Malignant neoplasm of unspecified site of unspecified female breast (principal)
CPT/HCPCS: 36590

== ENCOUNTER 2017-05-17 09:49 | Outpatient (RCR) | payer OTHER | END 2017-05-31 | LOC: M PT 09:49 | DX: Z51.89 Encounter for other specified aftercare (principal); M75.01 Adhesive capsulitis of right shoulder; M75.02 Adhesive capsulitis of left shoulder | CPT/HCPCS: 97110 ==

== ENCOUNTER → 2017-05-17 | Outpatient (CLI) | payer OTHER | LOC: M CARPUL 08:30 | DX: C50.919 Malignant neoplasm of unspecified site of unspecified female breast (principal); Z92.21 Personal history of antineoplastic chemotherapy ==

== ENCOUNTER → 2017-07-03 | Outpatient (REF) | payer OTHER | LOC: M SFHCWAGY 16:03 | DX: Z12.4 Encounter for screening for malignant neoplasm of cervix (principal) | CPT/HCPCS: 88142 ==

== ENCOUNTER → 2017-07-07 | Outpatient (CLI) | payer OTHER | LOC: M RAD 11:10 | DX: R59.0 Localized enlarged lymph nodes (principal); C50.919 Malignant neoplasm of unspecified site of unspecified female breast | CPT/HCPCS: 76536 ==

== ENCOUNTER 2017-08-10 09:56 | Outpatient (RCR) | payer OTHER | END 2017-08-28 | LOC: M PT 09:56 | DX: Z47.89 Encounter for other orthopedic aftercare (principal); M75.02 Adhesive capsulitis of left shoulder | CPT/HCPCS: 97010 ==